=== PATIENT | female | born 1975 | race African-American/Black ===

== ENCOUNTER 2021-11-13 14:14 | Emergency (ER) | payer SELFPAY ==
[~2021-11-13] VITALS: Ht 160 cm; Wt 113.4 kg
--- NOTE | 2021-11-13 14:14 | NUR ---
BIBSELF C/O CHEST PAIN THAT RADIATED TO LEFT SHOULDER AND BACK PAIN P/S 06/27 X2DAYS. PT VITASL ARE ELEVATED, MD AWARE. BREATHING IS EVEN AND UNLABORED. PT ATTCHED TO MONITOR.
[2021-11-13 15:22] LABS: BASOPHILS % (AUTO) 0.3 % (0.0-2.0); EOSINOPHILS % (AUTO) 1.3 % (0.0-6.0); HEMATOCRIT 42 % (33-45); HEMOGLOBIN 13.4 g/dL (11.5-14.8); LYMPHOCYTES # (AUTO) 1.9 K/uL (0.8-4.8); LYMPHOCYTES % (AUTO) 53.7 % (20.0-44.0); MEAN CORPUSCULAR HGB CONC 32 g/dl (31.0-36.0); MEAN CORPUSCULAR VOLUME 79 fL (82-100); MONOCYTES # (AUTO) 0.4 K/uL (0.1-1.30); MONOCYTES % (AUTO) 11.4 % (2.0-12.0); NEUTROPHILS # (AUTO) 1.2 K/uL (1.8-8.9); NEUTROPHILS % (AUTO) 33.3 % (43.0-81.0); PLATELET COUNT (AUTO) 246 K/uL (150-450); RED BLOOD CELL COUNT(AUTO) 5.27 MIL/uL (4.0-5.2); WHITE BLOOD COUNT (AUTO) 3.6 K/uL (4.3-11.0)
[2021-11-13 15:53] LABS: CALCIUM, SERUM 8.6 mg/dL (8.5-10.1); CARBON DIOXIDE 32 mmol/L (21-32); CHLORIDE 102 mmol/L (98-107); CREATININE 0.9 mg/dL (0.6-1.3); GLUCOSE 87 mg/dL (74-106); POTASSIUM 3.9 mmol/L (3.5-5.1); SODIUM SERUM 140 mmol/L (136-145); UREA NITROGEN, BLOOD 11 mg/dL (7-18)
--- NOTE | 2021-11-13 16:00 | NUR ---
PT UP TO BATHROOM , VSS STABLE
--- NOTE | 2021-11-13 18:33 | NUR ---
PT LEFT THE ER WITHOUT NOTIFYING STAFF MEMEBERS AND DID NOT SIGN HER DISCHARG INSTURCTION FORM .
[2021-11-13 18:41] VITALS: BP 153/99
--- NOTE | 2021-11-13 19:18 | NUR ---
LEFT MSG TO THE PATIENT TO CALL BACK. COVID POSITIVE
--- NOTE | 2021-11-15 12:15 | NUR ---
PT COVID PCR POSITIVE; NOT ABLE TO CONTACT PT TO NOTIFY
== END 2021-11-13 18:42 | disposition home or self-care (01) ==
LOC: EDBD 14:19 → ER 14:19
DX: R07.89 Other chest pain (principal); D72.819 Decreased white blood cell count, unspecified; U07.1 COVID-19; Z82.49 Family history of ischemic heart disease and other diseases of the circulatory system; E66.9 Obesity, unspecified; Z68.41 Body mass index [BMI] 40.0-44.9, adult
CPT/HCPCS: 36415; 71045; 80048; 84484; 84702; 85025; 87426; 93005; 99285; C9803 ×2; U0003